=== PATIENT | male | born 1990 | race Caucasian/White ===

== ENCOUNTER 2016-10-15 12:23 | Emergency (ER) | payer SELFPAY ==
[2016-10-15 13:00] VITALS: TEMP 97.9; BMI 19.8
--- NOTE | 2016-10-15 13:37 | DIRPT ---
CLINICAL DATA: Slipped and fell yesterday, mid to low back pain EXAM: THORACIC SPINE 2 VIEWS COMPARISON: None FINDINGS: Twelve pairs of ribs. Osseous mineralization normal. Irregularity of vertebral endplates at inferior T9 and T10. No definite fracture, subluxation or bone destruction. Visualized posterior ribs appear intact. IMPRESSION: Inferior endplate vertebral irregularities at T9 and T10 which could be developmental or degenerative. No definite acute fracture or subluxation identified. Electronically Signed By: Jero Peters M.D. On: 10/15/2016 13:34
--- NOTE | 2016-10-15 13:37 | DIRPT ---
CLINICAL DATA: Status post fall. Low back pain. EXAM: LUMBAR SPINE - COMPLETE 4+ VIEW COMPARISON: None. FINDINGS: There is no evidence of lumbar spine fracture. Alignment is normal. There is mild degenerative disc disease at L4-5 L5-S1. IMPRESSION: No acute osseous injury of the lumbar spine. Electronically Signed By: Delmis Golden On: 10/15/2016 13:34
--- NOTE | 2016-10-15 14:07 | EDPRACDOC ---
- General Information Chief Complaint: Back Injury Stated Complaint: SLIPPED & FELL C/O MID TO LOWER BACK PAIN Time Seen by Provider: 10/15/16 13:05 Information Source: Patient Mode Of Arrival: Car Home Medications: Home Medications Meloxicam [Mobic] 7.5 mg PO BID #20 tab 10/15/16 Allergies/Adverse Reactions: Allergies Allergy/AdvReac Type Severity Reaction Status Date / Time codeine Allergy Hives* Verified 10/15/16 12:57 tramadol Allergy Hives* Verified 10/15/16 12:57 - History of Present Illness Onset: YESTERDAY HPI: PT PRESENTS TODAY WITH MID TO LOW BACK PAIN AFTER MECHANICAL FALL ON ICE YESTERDAY. STATES HE HAS CHRONIC BACK PAIN AND FOLLOWS PAIN CLINIC. NO OTHER INJURY REPORTED. Pain Location: Reports: Thoracic, Lumbar Pain Radiates To: Reports: None Pain Caused By: Reports: Fall Circumstances: Reports: Other Relevant History: Reports: Chronic back pain Pain Severity: Reports: Moderate Pain Quality: Reports: Aching, Sharp Worsened By: Reports: Movement, Walking Associated Signs and Symptoms: Reports: None ED Past Medical History - History Reviewed Yes Nurses notes reviewed and agree except as marked - Patient Medical History Psychological History: Denies: Depression - Social Medical History Smoking Status: Light tobacco smoker (less than 5/day) EDM Review of Systems - Review of Systems ROS Negative Except as Marked: Yes All systems reviewed and were negative except as marked Constitutional: No Symptoms Reported Respiratory: No Symptoms Reported Cardiovascular: No Symptoms Reported Gastrointestinal: No Symptoms Reported Genitourinary: No Symptoms Reported Neurological: No Symptoms Reported Musculoskeletal: Back Integumentary: No Symptoms Reported - Physical Exam Constitutional: Alert, Distress (HOLDING BACK) Oriented to: Time, Person, Place Last recorded Vital Signs: Last Vital Signs Temp 97.9 F 10/15/16 12:57 Pulse 60 10/15/16 12:57 Resp 18 10/15/16 12:57 BP 128/58 L 10/15/16 12:57 Pulse Ox 100 10/15/16 12:57 Oxygen Pulse Oxygen Saturation 100 O2 Device Room Air Oxygen Flow Rate Fraction of Inspired Oxygen ( FIO2) - HEENT Head: Normal Eye Exam: Normal Neck: Normal, Denies Pain, Midline - Respiratory/Cardiovascular Respiratory: Normal - CTA Cardiovascular: Normal - GI Palpation: Normal Tenderness: Non tender - Musculoskeletal Back: Thoracic TTP, Lumbar TTP, No Palpable Step-off Extremities: Normal - Integumentary Skin: Normal Lymphatics: Normal - Neurologic Cerebellar: Normal Mood Description: Normal Thought: Coherent Perception: Normal ED Back Exam - Neurologic Motor Deficit: None - Musculoskeletal Cervical: Normal Thoracic: Tender Lumbar: Tender Midline: Tender Paraspinous: Tender Pelvis: Normal Decision Time to Discharge: 14:06 - Departure Disposition: Home Condition: Good Final Diagnosis: Lumbar sprain Instructions: Acute Low Back Pain (ED) Education/Counseling Given To: Patient Education/Counseling Given Regarding: Diagnosis, Treatment, Follow Up Referrals: None,No Provider [Primary Care Provider] - One Week Prescriptions: Meloxicam [Mobic] 7.5 mg PO BID #20 tab Additional Instructions: PLEASE FOLLOW UP WITH PCP FOR POSSIBLE NEED OF OUTPATIENT MRI.
[2016-10-15 14:16] VITALS: BP 121/59; PULSE 61
== END 2016-10-15 14:13 | disposition home or self-care (01) ==
LOC: EDMC 12:23
DX: S33.5XXA Sprain of ligaments of lumbar spine, initial encounter (principal); W00.0XXA Fall on same level due to ice and snow, initial encounter; F17.210 Nicotine dependence, cigarettes, uncomplicated
CPT/HCPCS: 72070; 72110; 99282